=== PATIENT | female | born 1980 | race Caucasian/White ===

== ENCOUNTER 2019-12-29 21:47 | Observation (INO) | payer MEDICAID ==
--- NOTE | 2019-12-29 22:20 | EDM.PDOCBH ---
ED HPI GENERAL MEDICAL PROBLEM - General Chief Complaint: Drug or Alcohol Abuse Stated Complaint: [facility] Time Seen by Provider: 12/29/19 22:11 Source of Information: Reports: Patient History Limitations: Reports: Uncooperative (Patient does not answer any questions. Entire history provided by triage note and patient's .) - History of Present Illness INITIAL COMMENTS - FREE TEXT/NARRATIVE: Mrs. Clements is a very pleasant 39-year-old woman with a past medical history significant for anxiety, treated with lorazepam, and untreated depression, who is now brought to the ED by EMS after likely ingesting a combination of medications in an apparent suicide attempt. According to the patient's , they got into an argument around 19:30 tonight, regarding the patient's oldest daughter, who has a history of methamphetamine abuse. The daughter had previously been kicked out of the house by the patient's , and the patient informed her amish that she was allowing her daughter to return home, despite there being 2 young children in the house. The patient's did not want that to happen, and left the house. When he returned, he found the patient writing a note. She left the house, he read the note, which implied that she was going to kill herself, and for him to take care of the 2 young children. He then went after her, found her, finding a number of pills in the grass, around 20:10 to 20:20 this evening. The patient's lorazepam pill bottle was empty. She may have also taken an unknown quantity of acetaminophen 500 mg, an unknown quantity of her daughters escitalopram, and an unknown quantity of her 's meloxicam. The patient's told me that he is not aware of the patient drinking any alcohol tonight, but that it is possible. EMS reported to the triage nurse that they saw vomitus with some pill stuff in it upon their arrival. The patient then told the triage nurse that "I want to go to [facility] with everyone else". The patient's tells me that the patient has never previously attempted suicide, and has never previously been psychiatrically hospitalized. Here in the ED, the patient is found to be hemodynamically stable, afebrile, saturating 100% on room air. The patient's tells me that, other than tonight's event, she has not had a recent fever, chills, sore throat, ear pain, nasal or sinus congestion, cough, dyspnea, chest pain, palpitations, nausea, vomiting, constipation, diarrhea, abdominal pain, urinary symptoms, recent weight gain or weight loss, recent bloody bowel movements or black bowel movements, recent joint aches, headaches, or rashes. The patient does not have a PCP. - Related Data Allergies Allergy/AdvReac Type Severity Reaction Status Date / Time No Known Allergies Allergy Verified 12/29/19 22:05 Past Medical History Psychiatric History: Reports: Anxiety, Depression (untreated) - Past Surgical History Oncologic Surgical History: Reports: Biopsy of Breast (left, benign) Social & Family History - Tobacco Use Smoking Status *Q: Never Smoker - Caffeine Use Caffeine Use: Reports: Soda - Alcohol Use Alcohol Use History: Yes Alcohol Use Frequency: Socially - Recreational Drug Use Recreational Drug Use: Yes Drug Use in Last 12 Months: Yes Recreational Drug Type: Reports: Marijuana/Hashish (tried an edible once) - Living Situation & Occupation Living situation: Reports: , with Spouse, with Family (2 kids) Occupation: Employed ([employer]) ED ROS GENERAL - Review of Systems Review Of Systems: Comprehensive ROS is negative, except as noted in HPI. ED EXAM, BEHAVIORAL HEALTH - Physical Exam Exam: See Below Exam Limited By: Uncooperative (Patient does not follow any commands) General Appearance: Alert, No Apparent Distress, Thin Eye Exam: Bilateral Eye: EOMI, Normal Inspection Ears: Normal External Exam Nose: Normal Inspection Throat/Mouth: Normal Inspection, Normal Lips, Normal Voice, No Airway Compromise Head: Atraumatic, Normocephalic Neck: Normal Inspection, Full Range of Motion Respiratory/Chest: No Respiratory Distress, Lungs Clear, Normal Breath Sounds, No Accessory Muscle Use Cardiovascular: Normal Peripheral Pulses, Regular Rate, Rhythm, No Edema, No Gallop, No JVD, No Murmur, No Rub GI/Abdominal: Normal Bowel Sounds, Soft, Non-Tender, No Organomegaly, No Distention, No Abnormal Bruit, No Mass (Female) Exam: Deferred Rectal (Female) Exam: Deferred Back Exam: Normal Inspection, Full Range of Motion, NT Extremities: Normal Inspection, Normal Range of Motion, No Pedal Edema, Normal Capillary Refill Neurological: Alert, No Motor/Sensory Deficits Skin Exam: Warm, Dry, Intact, Normal color, No rash EKG INTERPRETATION EKG Date: 12/29/19 Time: 22:28 Rhythm: NSR Rate (Beats/Min): 86 [place]: Normal P-Wave: Present QRS: Normal ST-T: Normal QT: Prolonged (QTc 492 ms) Comparison: NA - No Prior EKG COURSE, BEHAVIORAL HEALTH COMP - Course Vital Signs: Last Vital Signs Temp 36.7 C 12/30/19 08:14 Pulse 67 12/30/19 08:14 Resp 14 12/30/19 08:14 BP 99/68 12/30/19 08:14 Pulse Ox 96 12/30/19 08:14 Orders, Labs, Meds: Active Orders 24 hr Category Date Time Status EKG Documentation Completion [RC] ROUTINE Care 12/30/19 06:00 Active EKG Documentation Completion [RC] STAT Care 12/29/19 22:18 Active Lactated Ringers [Ringers, Lactated] 1,000 ml Med 12/29/19 22:45 Active IV ASDIRECTED Medication Orders Lactated Ringer's (Ringers, Lactated) 1,000 mls @ 150 mls/hr IV ASDIRECTED CHRIS Last Admin: 12/30/19 08:34 Dose: 150 mls/hr Documented by: Infusion: 12/30/19 05:34 Dose: 150 mls/hr Documented by: Admin: 12/29/19 22:53 Dose: 150 mls/hr Documented by: HEATHER Laboratory Tests 12/29/19 12/29/19 12/29/19 Range/Units 22:39 22:39 22:39 WBC 8.84 (3.98-10.04) K/mm3 RBC 3.86 L (3.98-5.22) M/mm3 Hgb 12.6 (11.2-15.7) gm/dl Hct 39.6 (34.1-44.9) % MCV 102.6 H (79.4-94.8) fl MCH 32.6 H (25.6-32.2) pg MCHC 31.8 L (32.2-35.5) g/dl RDW Std Deviation 45.5 (36.4-46.3) fL Plt Count 279 (182-369) K/mm3 MPV 9.4 (9.4-12.3) fl Neutrophils % (Manual) 52 (40-60) % Band Neutrophils % 0 (0-10) % Lymphocytes % (Manual) 40 (20-40) % Atypical Lymphs % 0 % Monocytes % (Manual) 4 (2-10) % Eosinophils % (Manual) 2 (0.7-5.8) % Basophils % (Manual) 2 H (0.1-1.2) Platelet Estimate Adequate Plt Morphology Comment Normal Hypochromasia 1+ slight Macrocytosis 2+ moderate Ovalocytes 2+ moderate RBC Morph Comment Not Reportable Sodium 138 (136-145) mEq/L Potassium 3.3 L (3.5-5.1) mEq/L Chloride 102 (98-107) mEq/L Carbon Dioxide 27 (21-32) mEq/L Anion Gap 12.3 (5-15) BUN 13 (7-18) mg/dL Creatinine 0.9 (0.55-1.02) mg/dL Est Cr Clr Drug Dosing TNP Estimated GFR (MDRD) > 60 (>60) mL/min BUN/Creatinine Ratio 14.4 (14-18) Glucose 104 (74-106) mg/dL Calcium 8.7 (8.5-10.1) mg/dL Magnesium (1.8-2.4) mg/dl Total Bilirubin 0.2 (0.2-1.0) mg/dL AST 9 L (15-37) U/L ALT 17 (14-59) U/L Alkaline Phosphatase 71 (46-116) U/L Total Protein 7.1 (6.4-8.2) g/dl Albumin 3.9 (3.4-5.0) g/dl Globulin 3.2 gm/dL Albumin/Globulin Ratio 1.2 (1-2) TSH 3rd Generation 2.495 (0.358-3.74) uIU/mL Urine HCG, Qual (NEGATIVE) Salicylates 0.9 L (2.8-20) mg/dL Urine Opiates Screen (GHJXGG=689) Ur Buprenorphine Scrn (CUTOFF=10) Ur Oxycodone Screen (YRA3DR=915) Urine Methadone Screen (RTPSZI=118) Ur Propoxyphene Screen (IBFECH=044) Acetaminophen 0 L (10-30) ug/mL Ur Barbiturates Screen (YJMVNC=426) Ur Tricyclics Screen (CJKZSR=181) Ur Phencyclidine Scrn (CUTOFF=25) Ur Amphetamine Screen (HTVYMM=118) U Methamphetamines Scrn (RXDEQH=486) U Benzodiazepines Scrn (TEIYQL=433) U Cocaine Metab Screen (LRDVNX=042) U Marijuana (THC) Screen (CUTOFF=50) Ethyl Alcohol 0.00 (0.00) gm% COVID-19 (ALONZO) (NEGATIVE) 12/29/19 12/29/19 12/29/19 Range/Units 22:42 22:45 22:54 WBC (3.98-10.04) K/mm3 RBC (3.98-5.22) M/mm3 Hgb (11.2-15.7) gm/dl Hct (34.1-44.9) % MCV (79.4-94.8) fl MCH (25.6-32.2) pg MCHC (32.2-35.5) g/dl RDW Std Deviation (36.4-46.3) fL Plt Count (182-369) K/mm3 MPV (9.4-12.3) fl Neutrophils % (Manual) (40-60) % Band Neutrophils % (0-10) % Lymphocytes % (Manual) (20-40) % Atypical Lymphs % % Monocytes % (Manual) (2-10) % Eosinophils % (Manual) (0.7-5.8) % Basophils % (Manual) (0.1-1.2) Platelet Estimate Plt Morphology Comment Hypochromasia Macrocytosis Ovalocytes RBC Morph Comment Sodium (136-145) mEq/L Potassium (3.5-5.1) mEq/L Chloride (98-107) mEq/L Carbon Dioxide (21-32) mEq/L Anion Gap (5-15) BUN (7-18) mg/dL Creatinine (0.55-1.02) mg/dL Est Cr Clr Drug Dosing Estimated GFR (MDRD) (>60) mL/min BUN/Creatinine Ratio (14-18) Glucose (74-106) mg/dL Calcium (8.5-10.1) mg/dL Magnesium (1.8-2.4) mg/dl Total Bilirubin (0.2-1.0) mg/dL AST (15-37) U/L ALT (14-59) U/L Alkaline Phosphatase (46-116) U/L Total Protein (6.4-8.2) g/dl Albumin (3.4-5.0) g/dl Globulin gm/dL Albumin/Globulin Ratio (1-2) TSH 3rd Generation (0.358-3.74) uIU/mL Urine HCG, Qual Negative (NEGATIVE) Salicylates (2.8-20) mg/dL Urine Opiates Screen Negative (DAULOH=033) Ur Buprenorphine Scrn Negative (CUTOFF=10) Ur Oxycodone Screen Negative (CZQ4LA=409) Urine Methadone Screen Negative (PNFJBH=348) Ur Propoxyphene Screen Negative (JMBVPE=064) Acetaminophen (10-30) ug/mL Ur Barbiturates Screen Negative (FLUYQH=037) Ur Tricyclics Screen Negative (UAANTP=217) Ur Phencyclidine Scrn Negative (CUTOFF=25) Ur Amphetamine Screen Negative (SGVONS=538) U Methamphetamines Scrn Negative (ZETWDO=732) U Benzodiazepines Scrn Presumptive positive H (TCLJVZ=446) U Cocaine Metab Screen Negative (ICHURE=949) U Marijuana (THC) Screen Negative (CUTOFF=50) Ethyl Alcohol (0.00) gm% COVID-19 (ALONZO) Negative (NEGATIVE) 12/30/19 12/30/19 Range/Units 00:23 00:28 WBC (3.98-10.04) K/mm3 RBC (3.98-5.22) M/mm3 Hgb (11.2-15.7) gm/dl Hct (34.1-44.9) % MCV (79.4-94.8) fl MCH (25.6-32.2) pg MCHC (32.2-35.5) g/dl RDW Std Deviation (36.4-46.3) fL Plt Count (182-369) K/mm3 MPV (9.4-12.3) fl Neutrophils % (Manual) (40-60) % Band Neutrophils % (0-10) % Lymphocytes % (Manual) (20-40) % Atypical Lymphs % % Monocytes % (Manual) (2-10) % Eosinophils % (Manual) (0.7-5.8) % Basophils % (Manual) (0.1-1.2) Platelet Estimate Plt Morphology Comment Hypochromasia Macrocytosis Ovalocytes RBC Morph Comment Sodium (136-145) mEq/L Potassium (3.5-5.1) mEq/L Chloride (98-107) mEq/L Carbon Dioxide (21-32) mEq/L Anion Gap (5-15) BUN (7-18) mg/dL Creatinine (0.55-1.02) mg/dL Est Cr Clr Drug Dosing Estimated GFR (MDRD) (>60) mL/min BUN/Creatinine Ratio (14-18) Glucose (74-106) mg/dL Calcium (8.5-10.1) mg/dL Magnesium 2.1 (1.8-2.4) mg/dl Total Bilirubin (0.2-1.0) mg/dL AST (15-37) U/L ALT (14-59) U/L Alkaline Phosphatase (46-116) U/L Total Protein (6.4-8.2) g/dl Albumin (3.4-5.0) g/dl Globulin gm/dL Albumin/Globulin Ratio (1-2) TSH 3rd Generation (0.358-3.74) uIU/mL Urine HCG, Qual (NEGATIVE) Salicylates (2.8-20) mg/dL Urine Opiates Screen (EQOBNQ=436) Ur Buprenorphine Scrn (CUTOFF=10) Ur Oxycodone Screen (BGL0HR=811) Urine Methadone Screen (ZMVTJQ=880) Ur Propoxyphene Screen (XMOXNO=872) Acetaminophen 1 L (10-30) ug/mL Ur Barbiturates Screen (FZAJJN=017) Ur Tricyclics Screen (FYALLL=866) Ur Phencyclidine Scrn (CUTOFF=25) Ur Amphetamine Screen (YKUELR=419) U Methamphetamines Scrn (YGGFEG=885) U Benzodiazepines Scrn (WXEVDG=854) U Cocaine Metab Screen (IIRQQR=709) U Marijuana (THC) Screen (CUTOFF=50) Ethyl Alcohol (0.00) gm% COVID-19 (ALONZO) (NEGATIVE) Medications Generic Name Dose Route Start Last Admin Trade Name Freq PRN Reason Stop Dose Admin Lactated Ringer's 1,000 mls @ 150 mls/hr 12/29/19 22:45 12/30/19 08:34 Ringers, Lactated IV 150 mls/hr ASDIRECTED CHRIS Administration Discontinued Medications Generic Name Dose Route Start Last Admin Trade Name Freq PRN Reason Stop Dose Admin Lactated Ringer's Confirm 12/30/19 08:26 12/30/19 08:35 Ringers, Lactated Administered 12/30/19 08:27 Not Given Dose 1,000 mls @ as directed .ROUTE .STK-MED ONE Potassium Chloride 40 meq 12/30/19 06:40 12/30/19 07:40 Klor-Con M20 PO 12/30/19 06:41 40 meq ONETIME ONE Administration Medical Clearance: 12/29/19 22:19 As above, the patient likely ingested some combination of lorazepam, acetaminophen, escitalopram, and meloxicam sometime around 20:15 this evening. It is unclear if the patient also ingested alcohol. There was a report that she vomited some pills up. On examination, the patient is awake, but not answering any questions and not following any commands. Her mascara is smeared, consistent with recent crying. I have ordered a standard psychiatric medical clearance panel, along with a swab to test for the SARS-CoV-2 virus. In the meantime, the patient will be given IV fluid. Because the patient may have ingested acetaminophen, I will order a repeat acetaminophen level to be drawn at 00:15, 4 hours after ingestion. 12/29/19 23:54 The patient's CBC is unremarkable. Her CMP is remarkable for a potassium mildly depressed at 3.3, and is otherwise unremarkable. Her TSH is within normal limits at 2.495. Her initial acetaminophen level is 0. Her salicylate level is within normal limits at 0.9. Her EtOH level is 0.00. Her urine drug screen is positive for benzodiazepines, only. Her urine test is negative. Her test for the SARS-CoV-2 virus is negative. As above, a repeat acetaminophen level will be drawn in about 20 minutes. 12/30/19 01:13 The patient's repeat acetaminophen level is low at 1.0. Notified by Nuria BENAVIDES that the patient's heart rate had increased to the 150s. I asked for a repeat ECG. It demonstrates a normal sinus rhythm at 94 bpm. There is no atrial enlargement. There is no AV block. There are no ischemic changes. There is a normal R wave progression. No LAD or RAD. No LVH or RVH. No intraventricular conduction delays. The QTc is not prolonged at 492 ms. Unfortunately, the QTc prolongation is likely the consequence of the escitalopram, and means that the patient is not at this time medically cleared. Our plan will be to keep her in the ED overnight and recheck an ECG in the mo rning. I will order one for 6 AM. 12/30/19 06:20 The patient's repeat ECG, obtained at 06:10, now has a QTc of 514 ms. She therefore remains not medically cleared, and will need to be placed into observation until she is medically fit for transfer to a psychiatric hospital. 12/30/19 06:[address] Cervantes at 06:31. She accepted the patient for placement into observation. 12/30/19 06:41 Notified by Nuria BENAVIDES that poison control is recommending that the patient's potassium level be kept over 4.0, with a magnesium level over 2.0. We did not check a magnesium level, although her potassium level, as above, returned mildly depressed at 3.3. I have therefore ordered 40 mEq of oral KCl, along with a magnesium level that Dr. Cervantes can check the results of. 12/30/19 09:23 The patient's magnesium level returned within normal limits at 2.1. Departure - Departure Time of Disposition: 06:34 Disposition: Refer to Observation Condition: Good Clinical Impression: Suicide attempt by drug overdose, QT prolongation - Discharge Information *PRESCRIPTION DRUG MONITORING PROGRAM REVIEWED*: Not Applicable *COPY OF PRESCRIPTION DRUG MONITORING REPORT IN PATIENT NOE: Not Applicable Sepsis Event Note (ED) - Evaluation Sepsis Screening Result: No Definite Risk - Focused Exam Vital Signs: Vital Signs Temp Pulse Resp BP Pulse Ox 12/29/19 22:00 36.9 C 82 16 114/78 100 - My Orders Last 24 Hours: My Active Orders 12/29/19 22:18 EKG Documentation Completion [RC] STAT 12/29/19 22:45 Lactated Ringers [Ringers, Lactated] 1,000 ml IV ASDIRECTED 12/30/19 06:00 EKG Documentation Completion [RC] ROUTINE - Assessment/Plan Last 24 Hours: My Active Orders 12/29/19 22:18 EKG Documentation Completion [RC] STAT 12/29/19 22:45 Lactated Ringers [Ringers, Lactated] 1,000 ml IV ASDIRECTED 12/30/19 06:00 EKG Documentation Completion [RC] ROUTINE
[2019-12-29] MEDS: Lactated Ringers 1,000 ML IV SCH (22:53)
[2019-12-29 23:25] LABS: ACETAMINOPHEN 0 ug/mL (10-30)
[2019-12-30] MEDS ORDERED: Potassium Chloride 20 MEQ Tab.ER PO ONE (06:40)
[2019-12-30] MEDS ORDERED: Lactated Ringers 1,000 ML ONE (08:26)
[2019-12-30] MEDS: Lactated Ringers 1,000 ML IV SCH (08:34)
[2019-12-30] MEDS ORDERED: Ondansetron 4 MG/2 ML SDV IV PRN (10:30)
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
== END 2019-12-30 17:17 ==
LOC: JD.ED 21:47 → EEVIPCON 12-30 07:35 → JD.MS 12-30 07:35
PROVIDERS: ADMIT Internal Medicine; ATTEND Internal Medicine
DX: T42.4X2A Poisoning by benzodiazepines, intentional self-harm, initial encounter (principal); T39.1X2A Poisoning by 4-Aminophenol derivatives, intentional self-harm, initial encounter; T39.392A Poisoning by other nonsteroidal anti-inflammatory drugs [NSAID], intentional self-harm, initial encounter; F41.9 Anxiety disorder, unspecified; R94.31 Abnormal electrocardiogram [ECG] [EKG]; F32.2 Major depressive disorder, single episode, severe without psychotic features; Z20.828 Contact with and (suspected) exposure to other viral communicable diseases
CPT/HCPCS: 36415; 80053; 80306; 80307; 81025; 83735; 84443; 85007; 85027; 87635; 93005; 99285; A9270; J7120; 93010; 96360; 96361; 99236; G0378; U0002